=== PATIENT | female | born 1975 | race Caucasian/White ===

== ENCOUNTER 2018-04-16 16:30 | Emergency (ER) | payer OTHER ==
[2018-04-16 17:20] VITALS: BMI 30.2
--- NOTE | 2018-04-16 19:13 | ED PDOC ---
Arrival/HPI - General Chief Complaint: Abdominal Pain Time Seen by Provider: 04/16/18 17:34 Historian: Patient - History of Present Illness Narrative History of Present Illness (Text): 04/16/18 18:12 42 year old female, presents to the Emergency Department complaining of intermittent left sided abdominal pain associated with nausea, mostly in the LUQ by the L ribs x 5 days. Reports that she was seen at the urgent care earlier today and was advised to go to the ER and be evaluated, possibly obtain a CT. Patient denies any fever, chills, vomiting, diarrhea, dysuria, changes in bowel movement, headache, dizziness, neck pain, chest pain, SOB, back pain, trauma, injury or any other complaints. Patient is s/p tubal ligation, hernia repair to the L abdomen and . PMD Charlie Time/Duration: > week (3 weeks) Symptom Onset: Gradual Symptom Course: Unchanged Quality: Aching Activities at Onset: Light Context: Home Past Medical History - Provider Review Nursing Documentation Reviewed: Yes - Infectious Disease Hx of Infectious Diseases: None - Cardiac Hx Cardiac Disorders: No - Pulmonary Hx Respiratory Disorders: No - Neurological Hx Neurological Disorder: Yes Hx Migraine: Yes - HEENT Hx HEENT Disorder: No - Renal Hx Renal Disorder: No - Endocrine/Metabolic Hx Endocrine Disorders: No - Hematological/Oncological Hx Blood Disorders: No - Integumentary Hx Dermatological Disorder: No - Musculoskeletal/Rheumatological Hx Musculoskeletal Disorders: No - Gastrointestinal Hx Gastrointestinal Disorders: Yes Other/Comment: CIBO - Genitourinary/Gynecological Hx Genitourinary Disorders: Yes Other/Comment: Pelvic congestion ovarian diamond dilation - Psychiatric Hx Psychophysiologic Disorder: No Hx Substance Use: No - Surgical History Hx Tubal Ligation: Yes Other/Comment: 2 c sections - Anesthesia Hx Anesthesia: Yes Hx Anesthesia Reactions: No Family/Social History - Physician Review Nursing Documentation Reviewed: Yes Family/Social History: No Known Family HX Smoking Status: Never Smoked Hx Alcohol Use: No Hx Substance Use: No Allergies/Home Meds Allergies/Adverse Reactions: Allergies Penicillins Allergy (Verified 04/16/18 17:21) ANAPHYLAXIS Review of Systems - Physician Review All systems were reviewed & negative as marked: Yes - Review of Systems Constitutional: absent: Fatigue, Fevers Respiratory: absent: SOB, Cough Cardiovascular: absent: Chest Pain, Palpitations Gastrointestinal: Abdominal Pain, Nausea. absent: Diarrhea, Vomiting Genitourinary Female: absent: Dysuria, Frequency, Hematuria Musculoskeletal: absent: Arthralgias, Back Pain, Neck Pain Neurological: absent: Headache, Dizziness Physical Exam Vital Signs Reviewed: Yes Vital Signs Temp Pulse Resp BP Pulse Ox 04/16/18 17:21 98.3 F 84 17 117/72 98 Temperature: Afebrile Blood Pressure: Normal Pulse: Regular Respiratory Rate: Normal Appearance: Positive for: Well-Appearing, Non-Toxic, Comfortable Pain Distress: None Mental Status: Positive for: Alert and Oriented X 3 - Systems Exam Head: Present: Atraumatic, Normocephalic Pupils: Present: PERRL Extroacular Muscles: Present: EOMI Conjunctiva: Present: Normal Mouth: Present: Moist Mucous Membranes Neck: Present: Normal Range of Motion Respiratory/Chest: Present: Clear to Auscultation, Good Air Exchange. No: Respiratory Distress, Accessory Muscle Use Cardiovascular: Present: Regular Rate and Rhythm, Normal S1, S2. No: Murmurs Abdomen: Present: Tenderness (+moderate tenderness to the L side of the abdomen, greatest in the LUQ). No: Distention, Peritoneal Signs Back: Present: Normal Inspection. No: CVA Tenderness, Midline Tenderness Upper Extremity: Present: Normal Inspection. No: Cyanosis, Edema Lower Extremity: Present: Normal Inspection. No: Edema Neurological: Present: GCS=15, CN II-XII Intact, Speech Normal, Motor Func Grossly Intact, Normal Sensory Function Skin: Present: Warm, Dry, Normal Color. No: Rashes Psychiatric: Present: Alert, Oriented x 3, Normal Insight, Normal Concentration Medical Decision Making ED Course and Treatment: 04/16/18 18:12 Impression: 42 year old female presents to the Emergency Department complaining of abdominal pain and chest pain. Plan: -- EKG -- Labs -- Chest X-ray -- Aspirin -- Pepcid -- Urine Culture -- Urinalysis -- Reassess and disposition Prior Visits: Notes and results from previous visits were reviewed. Progress Notes: Patient is refusing EKG. States that she has had multiple EKGs in the past and has always been normal. Benefits and reasoning for ordering the EKG was explained to the patient, however she continues to refuse EKG knowing the risk. Labs reviewed : cbc nl, cmp including LFTS and lipase nl, trop (-), bnp (-), UA (-). CXR : NAD, as read by PA. Considering lab results, and PE findings, CT A/P w/ IV contrast ordered. 04/16/18 23:27 CLINICAL HISTORY: PAIN/ HERNIA SURGERY 3 YEARS AGO. TECHNIQUE: Multiple axial, coronal, sagittal CT images were obtained through the abdomen and pelvis after administration of intravenous contrast material. OMNI 350 100 ml. DLP 342.55. COMMENTS: There are several small hepatic hypodensities measuring up to 4 mm, too small to accurately characterize consistent with small cysts versus hemangiomas. The liver is mildly enlarged measuring 18 cm in length. There is no intra or extrahepatic biliary ductal dilatation. The spleen is normal. The gallbladder is within normal limits. The pancreas is of normal contour and attenuation characteristics. There is no evidence of adrenal mass. There is very small fat containing umbilical hernia. Both kidneys demonstrate prompt and equal nephrograms. The kidneys are normal in size, shape and configuration. There is no evidence of renal or ureteral mass. No renal or ureteral calculi are identified. There is no hydroureter or hydronephrosis. Several tiny cortical cysts are present in the left kidney. There is no bowel wall thickening. No evidence for small or large bowel obs truction. There is no evidence of abdominal ascites or lymphadenopathy. There is moderate amount of fecal material seen throughout the colon consistent with mild constipation. The appendix is fluid filled and there is suggestion of mildly enhancing appendicial wall. Mild early appendicitis is not totally excluded. Clinical correlation is recommended. Consider follow-up study with oral contrast. The uterus and ovaries are grossly normal. There is no evidence of intrinsic or extrinsic bladder mass. There is no pelvic ascites or lymphadenopathy. Images of the lung bases show no evidence of pleural or parenchymal mass. There are no pleural effusions. Small hiatal hernia is seen. The bony structures are free of lytic or blastic lesions. IMPRESSION: 1. Several small hepatic hypodensities measuring up to 4 mm, too small to accurately characterize consistent with small cysts versus hemangiomas. 2. Very small fat containing umbilical hernia. 3. Several tiny cortical cysts in the left kidney. 4. Constipation. 5. The appendix is fluid filled and there is suggestion of mildly enhancing appendicial wall. Mild or early appendicitis is not excluded. Clinical correlation is recommended. Consider follow-up study with oral contrast. 6. Small hiatal hernia. CT results reviewed. Case d/w surgical assistant certified Dr. Janette Rollins. Dr. Janette Rollins evaluated the patient. As per surgical assistant certified, the patient does not have symptoms and signs of appendicitis. 04/17/18 00:35 On re-evaluation, patient reports improvement of symptoms, denies any nausea, or abdominal pain at this time. On exam, patient remains AAOx3, in no acute distress. Abdomen soft, non-tender, no guarding, no rebound, neg McBurney's, neg psoas sign, neg obturator sign, repeat neuro exam shows no focal findings. Diagnostic results d/w the patient in great detail. Diagnosis of abdominal pain d/w the patient. Based on history, exam and diagnostic results, plan will be for outpatient follow up. Patient instructed to follow-up with pmd in 1-2 days without fail. Advised to take medication as prescribed. Return to the emergency room at any time for any new or worsening symptoms. Patient states she fully agrees with and understands discharge instructions. States that she agrees with the plan and disposition. Verbalized and repeated discharge instructions and plan. I have given the erica ent opportunity to ask any additional questions. - RAD Interpretation Radiology Orders: 04/16/18 18:12 CHEST PORTABLE [RAD] Stat - Medication Orders Current Medication Orders: Discontinued Medications Aspirin (Aspirin Chewable) 324 mg PO STAT STA Stop: 04/16/18 18:16 Famotidine (Pepcid) 20 mg IVP STAT STA Stop: 04/16/18 18:16 - PA / FREELANCE DISPLAYER / Resident Statement MD/DO has reviewed & agrees with the documentation as recorded. - Scribe Statement The provider has reviewed the documentation as recorded by the Frankoibsai Fay. All medical record entries made by the Chata were at my direction and personally dictated by me. I have reviewed the chart and agree that the record accurately reflects my personal performance of the history, physical exam, medical decision making, and the department course for this patient. I have also personally directed, reviewed, and agree with the discharge instructions and disposition. Disposition/Present on Arrival - Present on Arrival Any Indicators Present on Arrival: No History of DVT/PE: No History of Uncontrolled Diabetes: No Urinary Catheter: No History of Decub. Ulcer: No History Surgical Site Infection Following: None - Disposition Have Diagnosis and Disposition been Completed?: Yes Diagnosis: Abdominal pain Disposition: HOME/ ROUTINE Disposition Time: 00:45 Patient Plan: Discharge Patient Problems: Current Active Problems Problem Status Onset Abdominal pain Acute Condition: IMPROVED Discharge Instructions (ExitCare): Acute Abdomen (Belly Pain), Adult (DC) Additional Instructions: Thank you for letting us take care of you today. You were treated for abdominal pain. The emergency medical care you received today was directed at your acute symptoms. If you were prescribed any medication, please fill it and take as directed. It may take several days for your symptoms to resolve. Return to the Emergency Department if your symptoms worsen, do not improve, or if you have any other problems. Please contact your doctor in 2 days for re-evaluation and follow up. Bring any paperwork you were given at discharge with you along with any medications you are taking to your follow up visit. Our treatment cannot replace ongoing medical care by a primary care provider (PCP) outside of the emergency department. Thank you for allowing the [facility] team to be part of your care today. If you had a CT : A Radiologist will review the ED reading if any change in treatment is needed we will contact you. Prescriptions: Esomeprazole Magnesium [Nexium] 40 mg PO DAILY #30 Naproxen 500 mg PO BID PRN #20 tablet PRN Reason: Pain, Moderate (4-7) Forms: [employer] ([employer]), WORK NOTE
[2018-04-16 19:37] LABS: BASO # 0.05 K/mm3 (0.0-2.0); BASO % 0.8 % (0.0-3.0); EOS # 0.3 (0.0-0.7); GRAN # 3.08 (1.4-6.5); GRAN % 47.9 % (50.0-68.0); HEMOGLOBIN 14.3 g/dL (12.0-16.0); LYMPH # 2.5 (1.2-3.4); LYMPH % 38.7 % (22.0-35.0); MEAN CELL VOLUME 84.2 fl (80.0-105.0); MEAN CORPUSCULAR HEMOGLOBIN 26.9 pg (25.0-35.0); MEAN PLATELET VOLUME 10.6 fl (7.0-11.0); MONO # 0.5 (0.1-0.6); MONO % 7.6 % (1.0-6.0); RBC 5.31 10^6/uL (3.5-6.1); RED CELL DISTRIBUTION WIDTH 13.8 % (11.5-14.5); WHITE BLOOD COUNT 6.4 10^3/ul (4.5-11.0)
[2018-04-16 19:46] LABS: URINE APPEARANCE CLEAR (CLEAR); URINE BILIRUBIN NEGATIVE (NEGATIVE); URINE BLOOD NEGATIVE (NEGATIVE); URINE COLOR YELLOW (YELLOW); URINE GLUCOSE (UA) NEGATIVE (NEGATIVE); URINE LEUKOCYTE ESTERASE NEGATIVE Leu/uL (NEGATIVE); URINE PROTEIN TRACE mg/dL (<30 mg/dL)
[2018-04-16 19:48] LABS: ALB/GLOB RATIO 1.3 (1.1-1.8); ALBUMIN 4.6 g/dL (3.0-4.8); ALT/SGPT 18 U/L (7-56); AST/SGOT 21 U/L (14-36); BLOOD UREA NITROGEN 16 mg/dL (7-21); CALCIUM 9.2 mg/dL (8.4-10.5); GFR NON-AFRICAN AMERICAN > 60; INR 1.07; LIPASE 118 U/L (23-300); PARTIAL THROMBOPLASTIN TIME 39.7 Seconds (25.1-36.5); PROTHROMBIN TIME 12.2 SECONDS (9.4-12.5)
[2018-04-16 20:00] LABS: B-TYPE NATRIURETIC PEPTIDE 34.2 pg/mL (0-450); TROPONIN I < 0.01 ng/mL
[2018-04-16 20:04] LABS: URINE BACTERIA TRACE (NEG); URINE RBC 0 - 2 /hpf (0-2); URINE WBC NEGATIVE /hpf (0-6)
[2018-04-16] MEDS ORDERED: Iohexol 350 MG/100 ML VIAL ONE (21:43)
[2018-04-17 02:30] VITALS: BP 132/69; PULSE 70; RESP 17; TEMP 98.2; O2SAT 100
--- NOTE | 2018-04-17 09:49 | RAD ---
Date of service: 04/16/2018 HISTORY: L rib pain COMPARISON: No prior. TECHNIQUE: Chest PA and lateral FINDINGS: LUNGS: No active pulmonary disease. PLEURA: No significant pleural effusion identified. No pneumothorax apparent. CARDIOVASCULAR: Normal. OSSEOUS STRUCTURES: No significant abnormalities. VISUALIZED UPPER ABDOMEN: Normal. OTHER FINDINGS: None. IMPRESSION: No active disease.
--- NOTE | 2018-04-17 11:29 | CT ---
Date of service: 04/16/2018 PROCEDURE: CT Abdomen and Pelvis with contrast HISTORY: L side abd pain COMPARISON: None. TECHNIQUE: Contrast dose: Radiation dose: Total exam DLP = 342.55 mGy-cm. This CT exam was performed using one or more of the following dose reduction techniques: Automated exposure control, adjustment of the mA and/or kV according to patient size, and/or use of iterative reconstruction technique. FINDINGS: LOWER THORAX: Unremarkable. LIVER: Unremarkable. No gross lesion or ductal dilatation. GALLBLADDER AND BILE DUCTS: Unremarkable. PANCREAS: Unremarkable. No gross lesion or ductal dilatation. SPLEEN: Unremarkable. ADRENALS: Unremarkable. No mass. KIDNEYS AND URETERS: Unremarkable. No hydronephrosis. No solid mass. VASCULATURE: Unremarkable. No aortic aneurysm. BOWEL: Unremarkable. No obstruction. No gross mural thickening. APPENDIX: Normal appendix. PERITONEUM: Unremarkable. No free fluid. No free air. LYMPH NODES: Unremarkable. No enlarged lymph nodes. BLADDER: Unremarkable. REPRODUCTIVE: Multiple dilated veins are seen on the left side of the uterus consistent with ovarian vein varices BONES: No acute fracture. OTHER FINDINGS: None. IMPRESSION: No acute intra-abdominal findings.
== END 2018-04-17 01:15 | disposition home or self-care (01) ==
LOC: ED 16:30
DX: R10.9 Unspecified abdominal pain (principal)
CPT/HCPCS: 71046; 74177; 80053; 81001; 82550; 83615; 83690; 83735; 83880; 84484; 85025; 85610; 85730; 87086; 99284; Q9967